=== PATIENT | male | born 1975 | race African-American/Black ===

== ENCOUNTER 2023-12-02 18:34 | Emergency (ER) | payer OTHER ==
[~2023-12-02] VITALS: Ht 165.1 cm; Wt 69.4 kg
[2023-12-02 18:49] VITALS: BP 114/71; PULSE 63; RESP 18; TEMP 98; O2SAT 97
[2023-12-02 19:45] VITALS: BP 118/68; PULSE 61; RESP 18; TEMP 98; O2SAT 97
== END 2023-12-02 19:48 | disposition home or self-care (01) ==
LOC: ER 18:34
DX: S49.92XA Unspecified injury of left shoulder and upper arm, initial encounter (principal); I10 Essential (primary) hypertension; V89.2XXA Person injured in unspecified motor-vehicle accident, traffic, initial encounter; Y93.89 Activity, other specified; Y92.89 Other specified places as the place of occurrence of the external cause; Y99.8 Other external cause status
CPT/HCPCS: 99283; 73030-LT